=== PATIENT | female | born 1940 | race Caucasian/White ===

== ENCOUNTER 2018-03-16 16:42 | Inpatient (IN) | payer MEDICARE ==
[~2018-03-16] VITALS: Ht 157.5 cm; Wt 60.4 kg
--- NOTE | 2018-03-16 16:50 | NUR ---
DR AMAYA AT THE BEDSIDE FOR MSE.
--- NOTE | 2018-03-16 16:52 | NUR ---
PT REFUSED TO CHANGE TO HOSPITAL GOWN.
--- NOTE | 2018-03-16 17:02 | NUR ---
1 TO 1 AT THE BEDSIDE.
[2018-03-16 17:11] LABS: BASOPHILS # (AUTO) 0.1 K/uL (0.0-8.0); BASOPHILS % (AUTO) 0.9 % (0.0-2.0); EOSINOPHILS % (AUTO) 0.7 % (0.0-7.0); HEMATOCRIT 43.2 % (31.2-41.9); HEMOGLOBIN 14.3 g/dL (10.9-14.3); LYMPHOCYTES # (AUTO) 1.3 K/uL (20.0-40.0); MEAN CORPUSCULAR HEMOGLOBIN 29.8 uug (24.7-32.8); MEAN CORPUSCULAR HGB CONC 33 g/dL (32.3-35.6); MEAN CORPUSCULAR VOLUME 90.1 fL (75.5-95.3); MONOCYTES # (AUTO) 0.4 K/uL (2.0-10.0); MONOCYTES % (AUTO) 7.3 % (0.0-11.0); NEUTROPHILS % (AUTO) 68.1 % (38.5-71.5); PLATELET COUNT (AUTO) 241 K/uL (179-408); WHITE BLOOD COUNT (AUTO) 5.9 K/uL (3.8-11.8)
--- NOTE | 2018-03-16 17:40 | NUR ---
DINNER PROVIDED, PT ATE W/ GOOD APPETITE.
[2018-03-16 17:48] LABS: ETHANOL < 3 MG/DL (0-0)
[2018-03-16] MEDS ORDERED: ALPR1TAB7 PO (18:01)
[2018-03-16 18:03] LABS: ALANINE AMINOTRANSFERASE 21 U/L (14-59); ALKALINE PHOSPHATASE 77 U/L (50-136); ASPARTATE AMINOTRANSFERASE 19 U/L (15-37); BILIRUBIN,DIRECT 0.1 mg/dL (0.0-0.2); BILIRUBIN,TOTAL 0.6 mg/dL (0.2-1.0); CARBON DIOXIDE 24 mmol/L (21-32); CHLORIDE 105 mmol/L (98-107); CREATININE 0.9 mg/dL (0.6-1.3); GLUCOSE 110 mg/dL (74-106); TOTAL PROTEIN, SERUM 7.8 g/dL (6.4-8.2); UREA NITROGEN, BLOOD 12 mg/dL (7-18)
[2018-03-16 18:07] LABS: ACETAMINOPHEN < 2.0 ug/mL (10-30)
--- NOTE | 2018-03-16 19:47 | NUR ---
Report given to Rochelle [facility].
[2018-03-16] MEDS ORDERED: ACETAMINOPHEN 325 MG TABLET PO PRN (20:30)
[2018-03-16] MEDS ORDERED: LORAZEPAM 0.5 MG TABLET PO PRN (20:30)
[2018-03-16] MEDS ORDERED: MAGNESIUM HYDROXIDE 30 ML LIQUID UDC PO PRN (20:30)
[2018-03-16] MEDS ORDERED: MAG HYDROX/AL HYDROX/SIMETH 30 ML LIQUID UDC PO PRN (20:30)
[2018-03-16 20:44] VITALS: BP 175/73
--- NOTE | 2018-03-16 20:45 | NUR ---
ADMISSION V/S: B/P 175/73MMHG AND PULSE 98. PATIENT IN NO ACUTE DISTRESS. SHE IS NOTED UPSET AND EASILY IRRITABLE. WILL RECHECKS B/P.
--- NOTE | 2018-03-16 21:30 | NUR ---
at approx 2000 admited
--- NOTE | 2018-03-16 21:45 | NUR ---
AT APPROX 2000 ADMITTED 77 YEAR OLD FEMALE FROM [facility] TO [facility] ON A 5150 FOR DTS. HOLD STARTED ON 03/16/18 AT 1600 AND WILL END ON 03/19/18 AT 1600. PER HOLD, PATIENT TOLD HER AIRCRAFT ACCESSORIES MECHANIC THAT SHE WANTED TO KILL HERSELF BY OVERDOSING ON SLEEPING PILLS. DAUGHTER CALLED 911, SHE WAS THEN TAKEN TO [facility] WERE SHE WAS PLACED ON 72 HRS HOLD FOR DTS AND SHE WAS MEDICALLY CLEARED FOR ADMISSION TO [facility]HU. UPON ADMISSION, PATIENT IS NOTED A/O X 2, SHE WAS NOTED HYPERVERBAL, EASILY IRRITABLE FORGETFUL AND DISORGANIZED. PATIENT DENIED SI. SHE DENIED MAKING SI STATEMENTS TO AIRCRAFT ACCESSORIES MECHANIC AND THE ELECTRONEURODIAGNOSTIC TECHNOLOGIST. SHE STATED THAT "IT IS A MISTAKE, I NEVER SAID THAT. THIS IS WRONG". SHE ASLO ADDED THAT HER BOYFRIEND IS IN THE HOSPITAL, BUT SHE IS NOT FEELING DEPRESSED ABOUT IT. PT IS ABLE TO CFS. PATIENT WAS PARTIALLY COMPLIANT WITH ADMISSION PROCESS. ADVISEMENT WAS GIVEN TO PATIENT, UNIT RULES WERE EXPLAINED. PATIENT IS UNDER THE CARE OF DR ALONSO/ITALIA. WILL CONTINUE TO MONITOR CLOSELY.
[2018-03-16 22:00] VITALS: BP 183/73
[2018-03-16] MEDS ORDERED: CLONIDINE HCL 0.1 MG TABLET PO PRN (22:15)
--- NOTE | 2018-03-16 22:15 | NUR ---
B/P WAS RECHECK 183/73MMHG AND PULSE 84BPM. DR. HARRIS WAS NOTIFY AND NEW ORDERS GIVEN TO ADMINISTER CATAPRES 0.1MG PO PRN FOR SBP>150. ORDER NOTED AND CARRIED OUT. WILL CONTINUE TO MONITOR.
--- NOTE | 2018-03-16 22:35 | NUR ---
PATIENT NOTED AWAKE, HYPERVERBAL, NEEDY. AMBIEN 5MG PO PRN FOR INSOMNIA WAS GIVEN. WILL CONTINUE TO MONITOR CLOSELY.
[2018-03-16] MEDS: ZOLPIDEM 5 MG TABLET PO PRN (22:43)
--- NOTE | 2018-03-16 23:30 | NUR ---
B/P WAS RE-ASSESS: 131/67MMHG AND PULSE 84BPM. PATIENT HAS A COLOSTOMY BAG ON HER LEFT LOWER QUADRANT. BAG WAS CHANGED. WILL CONTINUE TO MONITOR.
[2018-03-16 23:32] VITALS: BP 131/67
--- NOTE | 2018-03-17 05:30 | NUR ---
SPOKE WITH DAUGHTER DARNELL VIA PHONE CALL. SHE WAS NOTIFY OF PATIENT ADMISSION TO [facility]HU. SHE IS REQUESTING TO TALK TO DR ALONSO. SHE IS ALSO REQUESTING PLACEMENT FOR HER MOTHER. WILL ENDORSE TO INCOMING SHIFT
[2018-03-17 07:30] VITALS: BP 133/51
[2018-03-17 08:03] LABS: BASOPHILS # (AUTO) 0.1 K/uL (0.0-8.0); BASOPHILS % (AUTO) 1.3 % (0.0-2.0); EOSINOPHILS # (AUTO) 0.1 K/uL (0.0-0.7); HEMATOCRIT 40.3 % (31.2-41.9); HEMOGLOBIN 13.5 g/dL (10.9-14.3); LYMPHOCYTES # (AUTO) 1.5 K/uL (20.0-40.0); LYMPHOCYTES % (AUTO) 35.3 % (20.5-51.5); MEAN CORPUSCULAR HEMOGLOBIN 30.3 uug (24.7-32.8); MEAN CORPUSCULAR HGB CONC 34 g/dL (32.3-35.6); MEAN CORPUSCULAR VOLUME 90.3 fL (75.5-95.3); MONOCYTES # (AUTO) 0.4 K/uL (2.0-10.0); NEUTROPHILS # (AUTO) 2.3 K/uL (1.8-8.9); NEUTROPHILS % (AUTO) 51.4 % (38.5-71.5); PLATELET COUNT (AUTO) 201 K/uL (179-408); RED BLOOD CELL COUNT(AUTO) 4.46 MIL/uL (3.63-4.92); WHITE BLOOD COUNT (AUTO) 4.4 K/uL (3.8-11.8)
[2018-03-17 08:19] LABS: THYROID STIMULATING HORMONE 12.194 mIU/mL (0.358-3.740)
[2018-03-17] MEDS: AMLODIPINE 5 MG TABLET PO SCH (08:30)
[2018-03-17 08:49] LABS: ALANINE AMINOTRANSFERASE 20 U/L (14-59); ALKALINE PHOSPHATASE 66 U/L (50-136); ASPARTATE AMINOTRANSFERASE 16 U/L (15-37); BILIRUBIN,TOTAL 0.6 mg/dL (0.2-1.0); CARBON DIOXIDE 26 mmol/L (21-32); CHLORIDE 107 mmol/L (98-107); CREATININE 0.9 mg/dL (0.6-1.3); GLUCOSE 99 mg/dL (74-106); MAGNESIUM 2.1 mg/dL (1.8-2.4); PHOSPHOROUS 3.9 mg/dL (2.5-4.9); TOTAL PROTEIN, SERUM 6.7 g/dL (6.4-8.2); UREA NITROGEN, BLOOD 14 mg/dL (7-18)
[2018-03-17 13:00] VITALS: BP 134/65
[2018-03-17] MEDS: ESCITALOPRAM OXALATE 10 MG TABLET PO SCH (16:30)
[2018-03-17] MEDS: DIVALPROEX SPRINKLE 125 MG CAP.SPRINK PO SCH ×2 (18:17→20:38)
--- NOTE | 2018-03-17 19:50 | NUR ---
RECEIVED PATIENT IN THE HALLWAY. SHE IS NOTED A/O X 2, SHE IS ABLE TO AMBULATE WITH STEADY GAIT AND ABLE TO MAKE HER NEEDS KNOWN. SHE IS NOTED NEEDY, INTRUSIVE, LABILE, FORGETFUL. SHE CONTINUE ATTEMPTING TO REACH BOYFRIENDS VIA PHONE CALL. SHE DENIES SI/HI/VH/AV AT THIS TIME. SHE IS ABLE TO CFS. PATIENT NOTED WITH POOR INSIGHT AND JUDGMENT TO THE REASON FOR HER ADMISSION TO MHU. SHE STATED, "I AM GOING TO LEAVE TOMORROW". "I SHOULD NOT BE HERE, WHY AM I HERE?" "I NEED TO GO HOME SOON". PATIENT CONTINUE TO BE REASSURED AND REDIRECTED. NOTED FORGETFUL. SAFETY WAS EMPHASIS. WILL CONTINUE TO MONITOR.
[2018-03-17] MEDS: ATORVASTATIN 20 MG TABLET PO SCH (20:38)
[2018-03-17 21:15] VITALS: BP 149/68
--- NOTE | 2018-03-18 00:05 | NUR ---
PATIENT NOTED AWAKE, PREOCCUPIED WITH ROOMMATE, INTRUSIVE, NEEDY, EASILY IRRITABLE. AMBIEN 5MG PO PRN WAS OFFERED; HOWEVER PATIENT REFUSED. WILL CONTINUE TO MONITOR CLOSELY.
--- NOTE | 2018-03-18 06:46 | NUR ---
PATIENT SLEPT FOR APPROX 3.00 HRS THROUGH THE NIGHT. SHE CONTINUE NEEDY, SUSPICIOUS AT TIMES AND FORGETFUL. REFUSED AMBIEN 5MG PO PRN FOR INSOMNIA. WILL CONTINUE TO MONITOR.
[2018-03-18 08:00] VITALS: BP 139/68
[2018-03-18] MEDS: AMLODIPINE 5 MG TABLET PO SCH (10:09)
[2018-03-18] MEDS: DIVALPROEX SPRINKLE 125 MG CAP.SPRINK PO SCH ×2 (10:13→21:28)
[2018-03-18] MEDS: ESCITALOPRAM OXALATE 10 MG TABLET PO SCH (10:16)
--- NOTE | 2018-03-18 14:14 | NUR ---
Gps/Animal Impersonator- Interacting fairly well with the staff. Emotionally labile, crying spells noted. Indpendent with her self care.Compliant noted with her routine medications. Patient verbalized concerns regarding her dc.plan, claimed she will not be able to go back to her boyfriend's house. Adequate support from her daughter Kenzie from [place]. Denies S.I. encouraged continued verbalizations of her feelings and needs.
[2018-03-18] MEDS: LORAZEPAM 0.5 MG TABLET PO PRN (15:02)
--- NOTE | 2018-03-18 15:15 | NUR ---
Gps/Plush Cutter-Complained of pinching pain like on her mid sternum, not radiating anywhere, claimed started while talking to Psychologist Dr Brice, v/s 141/49 HR 69 02 sat 96%, verbalized feelings of being anxious, ativan 1 mg given po , will reassess chest discomfort, per pt. possible anxiety related. Will continue to monitor
[2018-03-18] MEDS: CYANOCOBALAMIN 1000 MCG/ML VIAL IM SCH (15:25)
[2018-03-18 16:00] VITALS: BP 147/41
--- NOTE | 2018-03-18 16:01 | NUR ---
DC Note: Patient was previously living at the home of her boyfriend [[address] [place] [address]]. However, the boyfriend's family will not let patient return upon discharge. Patient's daughter Kenzie [[phone]]stated she would like assistance with placement. SW will follow up with MD, patient, and patient's daughter to discuss most appropriate discharge plans. SW will form a safe and proper discharge.
--- NOTE | 2018-03-18 16:19 | NUR ---
Gps/Director Regulatory Compliance- Colostomy care done, colostomy bag and appliance changed, patient was educated, per pt. she has not done it by herself , Someone comes in q 3 days to chage the colostomy bag/colostomy care. Had mod. amount od pasty dark stools
[2018-03-18 20:00] VITALS: BP 126/57
[2018-03-18] MEDS: ATORVASTATIN 20 MG TABLET PO SCH (21:28)
[2018-03-19 07:30] VITALS: BP 144/59
[2018-03-19] MEDS: DIVALPROEX SPRINKLE 125 MG CAP.SPRINK PO SCH ×2 (09:31→20:28)
[2018-03-19] MEDS: AMLODIPINE 5 MG TABLET PO SCH (09:31)
[2018-03-19] MEDS: ESCITALOPRAM OXALATE 10 MG TABLET PO SCH (09:31)
[2018-03-19] MEDS: CYANOCOBALAMIN 1000 MCG/ML VIAL IM SCH (09:32)
[2018-03-19 15:00] VITALS: BP 147/59
--- NOTE | 2018-03-19 18:45 | NUR ---
Gps/Bankruptcy Processor- Transfered patient to second floor with all belongings, patient was well informed. Kenan Boss gave report.
[2018-03-19 20:00] VITALS: BP 114/48
[2018-03-19] MEDS: ATORVASTATIN 20 MG TABLET PO SCH (20:28)
[2018-03-19] MEDS: DONEPEZIL 5 MG TABLET PO SCH (20:29)
--- NOTE | 2018-03-19 21:00 | NUR ---
Received patient awake & alert no SOB denies chest pain. Denies any pain at this time. Vital signs WNL. Colostomy intact, no output yet. Patient stated colostomy bag was cleaned & emptied before end of shift. Routine night meds given, patient tolerated.
[2018-03-19] MEDS: ZOLPIDEM 5 MG TABLET PO PRN (23:51)
[2018-03-20 06:15] VITALS: BP 136/67
[2018-03-20 07:31] VITALS: BP 149/60
--- NOTE | 2018-03-20 08:00 | NUR ---
AWAKE ALERT CONTINUE TO WONDER WHY SHE"S IN THE HOSPITAL, REALITY ORIENTATION GIVEN AND CONTINUE WITH 1:1 SITTER FOR SAFETY.
[2018-03-20] MEDS: LORAZEPAM 0.5 MG TABLET PO PRN ×2 (08:12→18:23)
[2018-03-20] MEDS: AMLODIPINE 5 MG TABLET PO SCH (08:13)
[2018-03-20] MEDS: DIVALPROEX SPRINKLE 125 MG CAP.SPRINK PO SCH ×2 (08:13→20:13)
[2018-03-20] MEDS: ESCITALOPRAM OXALATE 10 MG TABLET PO SCH (08:13)
[2018-03-20] MEDS: LEVOTHYROXINE SODIUM 25 MCG TABLET PO SCH (08:16)
[2018-03-20] MEDS: CYANOCOBALAMIN 1000 MCG/ML VIAL IM SCH (08:18)
--- NOTE | 2018-03-20 12:30 | NUR ---
SEEN BY DR SERNA FOR FOLLOW-UP SEE NOTES. PATIENT REMAINS WITH ON AND OFF ANXIETY AND CONFUSION ALWAYS DRESSED UP AND WANTS TO GO BACK TO MHU. CONTINUE [address] SERNA
--- NOTE | 2018-03-20 15:40 | NUR ---
DAUGHTER CALLED FROM [place] UPDATED PLAN OF CARE. CONTINUE WITH 1:1 SITTER.
[2018-03-20 15:54] VITALS: BP 148/50
--- NOTE | 2018-03-20 18:24 | NUR ---
VERY ANXIOUS AND PACING IN ROOM, CONTINUE TO ASK BOYFRIEND WHERE ABOUT. REALITY ORIENTATION GIVEN. PRN MEDS GIVEN
[2018-03-20 19:30] VITALS: BP 142/52
--- NOTE | 2018-03-20 19:30 | NUR ---
Received patient from day shift nurse. Patient stable at start of shift with no acute distress. 1:1 sitter at the bedside. Pertinent assessment completed. Alert, awake at start of shift with periods of confusion. Stating that she wants to leave & go home right now. Reoriented patient & explained to her why she is here. Patient is a geropsych overflow on a 14 day hold till 04/02/18. Patient denies SI. Vital signs within range at start of shift. Colostomy bag in place & intact. Room checked for safety. Will continue to monitor through shift.
[2018-03-20] MEDS: DONEPEZIL 5 MG TABLET PO SCH (20:13)
[2018-03-20] MEDS: ATORVASTATIN 20 MG TABLET PO SCH (20:14)
[2018-03-21] MEDS: LEVOTHYROXINE SODIUM 25 MCG TABLET PO SCH (06:07)
--- NOTE | 2018-03-21 06:23 | NUR ---
Patient slept well through the night. Slept total of 8 hours. No acute distress. No signs of SI noted. Sitter at the bedside for safety. Vital signs within range. All needs attended to. Patient took all meds as ordered. Safety measures implemented. Will endorse to oncoming shift.
[2018-03-21 07:50] VITALS: BP 147/74
[2018-03-21] MEDS: DIVALPROEX SPRINKLE 125 MG CAP.SPRINK PO SCH ×2 (07:59→20:33)
[2018-03-21] MEDS: CYANOCOBALAMIN 1000 MCG/ML VIAL IM SCH (07:59)
[2018-03-21] MEDS: AMLODIPINE 5 MG TABLET PO SCH (07:59)
[2018-03-21] MEDS: ESCITALOPRAM OXALATE 10 MG TABLET PO SCH (08:00)
[2018-03-21] MEDS: LORAZEPAM 0.5 MG TABLET PO PRN ×2 (08:00→20:33)
--- NOTE | 2018-03-21 08:00 | NUR ---
RESTING COMFORTABLY IN BED WITH EYES CLOSED NO SIGNS OF SEVERE AGITATION. CONTINUE WITH 1:1 SITTER FOR 5250 HOLD TILL 04/02/18
--- NOTE | 2018-03-21 12:00 | NUR ---
REQUESTED TO HAVE SHOWER, NEEDS ATTENDED BUT REQUIRES CONSTANT SUPERVISION FOR SAFY
[2018-03-21 14:33] VITALS: BP 134/50
[2018-03-21 16:28] VITALS: BP 149/68
--- NOTE | 2018-03-21 17:31 | NUR ---
PATIENT STILL CONTINUE TO HAVE CRYING SPILLS "I WANT TO SEE MY I LOVE HIM SO MUCH" SEEN BY KORINA SEE NOTES
[2018-03-21 20:00] VITALS: BP 123/58
[2018-03-21] MEDS: DONEPEZIL 5 MG TABLET PO SCH (20:32)
[2018-03-21] MEDS: ATORVASTATIN 20 MG TABLET PO SCH (20:33)
--- NOTE | 2018-03-21 21:00 | NUR ---
Nursing Note: Patient awake alert oriented with periods of forgetfulness. Pt searching items. Pt redirected as needed. Respirations even and unlabored. No acute physiological distress at this time. Pt colostomy care provided after emptying bag 400cc. Pt noted with no feelings of hopelessness at this time. Noted with 1:1 sitter justified by suicidal ideation. Call light in reach at all times. Frequent visual checks. Will continue to monitor.
[2018-03-22] VITALS: BP 128/41
--- NOTE | 2018-03-22 | NUR ---
Nursing Note: Pt sleeping comfortably. Respirations even and unlabored. No acute distress noted at this time. No verbalizations of suicidal ideation at this time. Noted pt forgetful and require multiple explanations of medications indications and actions. Pt continues to require 1:1 supervision justified by suicidal ideation. Pt On 5250 hold until 04/02/18. Bed in low position at all times. Pt colostomy bag securely attached at this time. Frequent visual checks done. Will continue to monitor.
[2018-03-22 05:42] VITALS: BP 139/60
[2018-03-22] MEDS: LEVOTHYROXINE SODIUM 25 MCG TABLET PO SCH (06:04)
--- NOTE | 2018-03-22 07:05 | NUR ---
RECEIVED REPORT FROM CERTIFIED MEDICAL TRANSCRIPTIONIST NURSE, PATIENT IN BED ASLEEP, NO DISTRESS NOTED AT THIS TIME, BED IN LOW POSITION, SIDE RAILS UP X2, SITTER AT BEDSIDE.
[2018-03-22 07:47] LABS: BASOPHILS # (AUTO) 0.1 K/uL (0.0-8.0); BASOPHILS % (AUTO) 1.2 % (0.0-2.0); EOSINOPHILS # (AUTO) 0.2 K/uL (0.0-0.7); EOSINOPHILS % (AUTO) 3.4 % (0.0-7.0); HEMATOCRIT 42.5 % (31.2-41.9); HEMOGLOBIN 14.6 g/dL (10.9-14.3); LYMPHOCYTES # (AUTO) 1.6 K/uL (20.0-40.0); LYMPHOCYTES % (AUTO) 27.5 % (20.5-51.5); MEAN CORPUSCULAR HEMOGLOBIN 31.1 uug (24.7-32.8); MEAN CORPUSCULAR HGB CONC 34 g/dL (32.3-35.6); MEAN CORPUSCULAR VOLUME 90.6 fL (75.5-95.3); MONOCYTES # (AUTO) 0.4 K/uL (2.0-10.0); MONOCYTES % (AUTO) 7.2 % (0.0-11.0); NEUTROPHILS # (AUTO) 3.6 K/uL (1.8-8.9); NEUTROPHILS % (AUTO) 60.7 % (38.5-71.5); PLATELET COUNT (AUTO) 237 K/uL (179-408); RED BLOOD CELL COUNT(AUTO) 4.69 MIL/uL (3.63-4.92); WHITE BLOOD COUNT (AUTO) 5.9 K/uL (3.8-11.8)
[2018-03-22 07:54] LABS: CARBON DIOXIDE 33 mmol/L (21-32); CHLORIDE 104 mmol/L (98-107); GLUCOSE 101 mg/dL (74-106); POTASSIUM 4.5 mmol/L (3.5-5.1); UREA NITROGEN, BLOOD 13 mg/dL (7-18)
[2018-03-22 08:00] VITALS: BP 133/42
[2018-03-22] MEDS: CYANOCOBALAMIN 1000 MCG/ML VIAL IM SCH (08:22)
[2018-03-22] MEDS: AMLODIPINE 5 MG TABLET PO SCH (08:22)
[2018-03-22] MEDS: ESCITALOPRAM OXALATE 10 MG TABLET PO SCH (08:22)
[2018-03-22] MEDS: DIVALPROEX SPRINKLE 125 MG CAP.SPRINK PO SCH ×2 (08:22→20:43)
--- NOTE | 2018-03-22 09:52 | NUR ---
Discharge Planning Note: ZEINA spoke with patient's daughters Kenzie [[phone]] and Boyd [[phone]] at length on 03/18 and 03/19 over phone and via email to discuss discharge planning. Daughters expressed feeling overwhelmed about placement for patient as she is unable to return to where she was living prior to hospitalization. SW assured daughters she would assist with placement and spoke to them about attending psychiatrist's recommendations. ZEINA faxed inquiries to [facility] [phone]] and [facility] [phone]]. Both facilities stated they can accept patient. ZEINA also faxed an inquiry to [facility] [ ] per request of Kenzie. ZEINA will follow up with [facility] to see if they can accept patient. ZEINA will continue to follow up with family.
[2018-03-22 12:00] VITALS: BP 125/41
[2018-03-22 16:00] VITALS: BP 143/50
--- NOTE | 2018-03-22 17:54 | NUR ---
Patient has been cooperative with care, and tearful a few times throughout the day. Patient engaged in grooming activities and participated in therapeutic conversation. Colostomy bag changed on patient's request as she felt uncomfortable with the one that was currently on. Currently patient is in bed, no distress noted, bed in low position, side rails up x2. Sitter at bedside.
[2018-03-22 19:46] VITALS: BP 149/44
[2018-03-22] MEDS: DONEPEZIL 5 MG TABLET PO SCH (20:43)
[2018-03-22] MEDS: ATORVASTATIN 20 MG TABLET PO SCH (20:43)
[2018-03-22] MEDS: ZOLPIDEM 5 MG TABLET PO PRN (22:17)
[2018-03-23] MEDS: LEVOTHYROXINE SODIUM 25 MCG TABLET PO SCH (06:52)
--- NOTE | 2018-03-23 07:05 | NUR ---
Received report from police shift commander nurse, patient in bed asleep, no distress noted at this time, bed in low position, side rails upx2. sitter at bedside.
[2018-03-23] MEDS: CYANOCOBALAMIN 1000 MCG/ML VIAL IM SCH (08:48)
[2018-03-23] MEDS: ESCITALOPRAM OXALATE 10 MG TABLET PO SCH (08:48)
[2018-03-23] MEDS: DIVALPROEX SPRINKLE 125 MG CAP.SPRINK PO SCH ×2 (08:48→20:20)
[2018-03-23] MEDS: AMLODIPINE 5 MG TABLET PO SCH (08:54)
[2018-03-23 12:00] VITALS: BP 128/46
--- NOTE | 2018-03-23 17:55 | NUR ---
patient has been cooperative with care, no physical distress noted throughout shift. Patient is occasionally tearful, but is able to be redirected. Currently patient in bed, no distress noted, bed in low position, side rails up x2.
[2018-03-23 19:00] VITALS: BP_SYST 103; BP_SYST 124; BP_DIAS 41; BP_DIAS 62
[2018-03-23] MEDS: ATORVASTATIN 20 MG TABLET PO SCH (20:19)
[2018-03-23] MEDS: DONEPEZIL 5 MG TABLET PO SCH (20:20)
[2018-03-24] MEDS: ZOLPIDEM 5 MG TABLET PO PRN
--- NOTE | 2018-03-24 05:52 | NUR ---
PT SLEPT 5 HOURS. PT IS COMPLAINING THAT SHE WANTS THE DOOR CLOSED AND THAT HER ROOMMATE IS KEEPING HER AWAKE WHEN SHE IS TRYING TO SLEEP. PT ROOMATE IS PACING IN THE ROOM BUT IS NOT MAKING NOISE OR BOTHERING THE PATIENT.
[2018-03-24] MEDS: LEVOTHYROXINE SODIUM 25 MCG TABLET PO SCH (06:01)
--- NOTE | 2018-03-24 07:33 | NUR ---
patient resting comfortably in bed, no signs of agitation at this time. reorientation will be provided. no s/s of distress. colostomy intact, no signs of leakage. 1:1 sitter at bedside for safety. denies SI at this time. safety measures implemented.
[2018-03-24] MEDS: CYANOCOBALAMIN 1000 MCG/ML VIAL IM SCH (09:05)
[2018-03-24] MEDS: AMLODIPINE 5 MG TABLET PO SCH (09:05)
[2018-03-24] MEDS: ESCITALOPRAM OXALATE 10 MG TABLET PO SCH (09:05)
[2018-03-24] MEDS: DIVALPROEX SPRINKLE 125 MG CAP.SPRINK PO SCH (09:05)
[2018-03-24 09:22] VITALS: BP 140/45
--- NOTE | 2018-03-24 10:03 | NUR ---
DC Note: Patient will be discharged to [facility] [[address], [place] [address]; ] via ambulance. ZEINA spoke with Evelyn and Antoine at [facility] who confirmed they can accept patient today. ZEINA spoke with patient's daughter Kenzie [[phone]] who is aware and agreeable to discharge plans. Patient is calm, but forgetful. She denies SI and HI. Patient will follow up with Dr. Chanel (Psychiatrist) and Dr. Peraza (Finance Consultant) at the facility.
[2018-03-24 12:00] VITALS: BP 147/55
== END 2018-03-24 13:00 | DRG 885 ==
LOC: ER 16:44 → GPS 19:49 → GPSOV 03-19 18:40
PROVIDERS: ADMIT Psychiatry & Neurology Psychiatry; ATTEND Nurse Practitioner Acute Care
DX: F31.60 Bipolar disorder, current episode mixed, unspecified (principal); Z93.3 Colostomy status; R45.851 Suicidal ideations; F03.91 Unspecified dementia, unspecified severity, with behavioral disturbance; F41.9 Anxiety disorder, unspecified; E78.5 Hyperlipidemia, unspecified; E02 Subclinical iodine-deficiency hypothyroidism; Z79.899 Other long term (current) drug therapy; Z87.19 Personal history of other diseases of the digestive system
CPT/HCPCS: 36415; 70450; 80164; 82306; 83735; 84100; 84443; 84480; 84481; 85025; 93005; A4663; G0480; G0480-TC; J3420